=== PATIENT | male | born 1970 | race Caucasian/White ===

== ENCOUNTER 2022-11-08 10:56 | Emergency (ER) | payer OTHER ==
[2022-11-08] MEDS ORDERED: NA CHLORIDE 0.9% 1,000 ML ONE (12:33)
[2022-11-08 12:35] LABS: Absolute Lymphocytes (CBC) 1.7 K/uL (0.7-4.9); Lymphocytes % 21.8 % (15.3-44.8); MCV 94.7 fL (80-100); MPV 9.4 fL (7.6-11.3); RBC Red Blood Cell Count 4.76 M/uL (4.33-5.43)
[2022-11-08] MEDS ORDERED: MORPHINE 4 MG/ML SYR ONE (14:03)
[2022-11-08] MEDS ORDERED: ONDANSETRON 4 MG/2 ML VIAL ONE ×2 (14:03→15:23)
[2022-11-08] MEDS ORDERED: FAMOTIDINE 20 MG/2 ML VIAL IV ONE (14:03)
[2022-11-08 14:05] LABS: Albumin 3.2 g/dL (3.4-5.0); Bilirubin Total 0.2 mg/dL (0.2-1.0); Potassium 4.1 mEq/L (3.5-5.1); Protein, Total 6.7 g/dL (6.4-8.2)
[2022-11-08] MEDS ORDERED: HYDROMORPHONE HCL 1 MG/ML INJ ONE (15:23)
[2022-11-08 15:38] LABS: Specific Gravity 1.025 (1.005-1.030); Urine Bilirubin NEGATIVE (Negative); Urine Blood Negative (Negative); Urine Clarity Clear (Clear); Urine Color Colorless (Yellow); Urine Glucose NEGATIVE (Negative); Urine Protein NEGATIVE (Negative); Urine Urobilinogen Normal (Normal); Urine pH 6.5 (5.0-7.0)
--- NOTE | 2022-11-08 16:07 | RAD REPORT ---
EXAM DESCRIPTION: CT - Abdomen Pelvis W Contrast - 11/08/2022 2:33 pm CLINICAL HISTORY: ABD PAIN COMPARISON: No comparisons TECHNIQUE: Thin cut axial CT imaging of the abdomen and pelvis was performed following intravenous a dministration of 100 mL Isovue 300. Multiplanar reformats were generated and reviewed. All CT scans are performed using dose optimization technique as appropriate and may include automated exposure control or mA/KV adjustment according to patient size. FINDINGS: Right middle lobe 7 millimeter nodule is incidentally noted. No other suspicious lung find ings. . The liver, spleen, and pancreas show no suspicious findings. Gallbladder and biliary tree are also wi thout suspicious finding. Symmetric renal function is seen with no hydronephrosis or suspicious renal mass. No dilated bowel loops or bowel wall thickening. No free air, free fluid or inflammatory stranding. N o suspicious mass or bulky lymphadenopathy. The urinary bladder is without significant finding. Umbilical hernia containing fat, measuring 6.7 x 5.0 centimeter in greatest axial dimensions, and 2.5 centimeter at the neck, with fat stranding extending superficial and deep to the hernia neck. No suspicious bony findings. IMPRESSION: Fat containing umbilical hernia, with fat stranding, suggesting inflammation or strangul ation. No other acute intra-abdominal process.
--- NOTE | 2022-11-08 16:25 | ER ---
Nurse's Notes [facility] Name: Osmin Hameed Age: 52 yrs Sex: Male : 1970 Arrival Date: 11/08/2022 Time: 10:56 Bed 12 Private MD: Diagnosis: Umbilical hernia without obstruction or gangrene;Low back pain;Sciatica Presentation: 11/08 11:48 Chief complaint: Patient states: he has an abdominal hernia that is causing him pain as ap3 well as his lower back. patient reports he has been moving recently so he has been lifting a lot of heavy boxes. Coronavirus screen: At this time, the client does not indicate any symptoms associated with coronavirus-19. Ebola Screen: No symptoms or risks identified at this time. Initial Sepsis Screen: Does the patient meet any 2 criteria? No. Patient's initial sepsis screen is negative. Does the patient have a suspected source of infection? No. Patient's initial sepsis screen is negative. Risk Assessment: Do you want to hurt yourself or someone else? Patient reports no desire to harm self or others. Onset of symptoms was November 07, 2022. 11:48 Method Of Arrival: Wheelchair ap3 11:48 Acuity: DERIC 3 ap3 Triage Assessment: 11:50 General: Appears uncomfortable, Behavior is cooperative, appropriate for age. Pain: ap3 Complains of pain in low back area and abdomen. Neuro: Level of Consciousness is awake, alert, obeys commands, Oriented to person, place, time, situation. Cardiovascular: Patient's skin is warm and dry. Respiratory: Airway is patent Respiratory effort is even, unlabored, Respiratory pattern is regular, symmetrical. GI: Reports lower abdominal pain, upper abdominal pain, due to existing hernia he's had for a reported 5 years. Musculoskeletal: Historical: - Allergies: 11:49 No Known Allergies; ap3 - Home Meds: 11:49 None [Active]; ap3 - PMHx: 11:49 None; ap3 - Immunization history:: Client reports having NOT received the Covid vaccine. - Social history:: Smoking status: Patient reports the use of cigarette tobacco products, smokes one pack cigarettes per day. Screenin:51 Abuse screen: Denies threats or abuse. Nutritional screening: No deficits noted. ap3 Tuberculosis screening: No symptoms or risk factors identified. 14:09 [facility] ED Fall Risk Assessment (Adult) History of falling in the last 3 months, mb9 including since admission No falls in past 3 months (0 pts) Confusion or Disorientation No (0 pts) Intoxicated or Sedated No (0 pts) Impaired Gait No (0 pts) Mobility Assist Device Used No (0 pt) Altered Elimination No (0 pt) Score/Fall Risk Level 0 - 2 = Low Risk Oriented to surroundings, Maintained a safe environment, Educated pt \T\ family on fall prevention, incl call for assistance when getting out of bed. Assessment: 14:08 General: Appears uncomfortable. Pain: Complains of pain in back Pain radiates to mb9 abdomen Pain currently is 8 out of 10 on a pain scale. Quality of pain is described as throbbing. Neuro: Munson Agitation-Sedation Scale (RASS): 0 - Alert and Calm Level of Consciousness is awake, alert, obeys commands, Oriented to person, place, time, situation, Appropriate for age. Respiratory: Airway is patent Respiratory effort is even, unlabored, Respiratory pattern is regular, symmetrical. GI: hernia noted to abdomen Reports lower abdominal pain, upper abdominal pain. Derm: Skin is normal. Musculoskeletal: Range of motion: intact in all extremities. Vital Signs: 11:48 BP 125 / 78; Pulse 78; Resp 19; Temp 98.3; Pulse Ox 97% ; Weight 124.74 kg; Pain 7/10; ap3 14:07 BP 132 / 88; Pulse 76; Resp 18; Pulse Ox 97% on R/A; mb9 15:22 BP 140 / 87; Pulse 71; Resp 18; Pulse Ox 100% on R/A; mb9 16:52 BP 128 / 88; Pulse 74; Resp 16; Pulse Ox 98% on R/A; mb9 11:48 Pain Scale: Adult ap3 ED Course: 10:57 Patient arrived in ED. mr 11:28 Sarabjit Salamanca MD is Attending Physician. enid 11:49 Triage completed. ap3 11:51 Arm band placed on right wrist. ap3 11:51 Patient has correct armband on for positive identification. Adult w/ patient. ap3 12:30 CBC with Diff Sent. mb9 12:30 CMP Sent. mb9 12:30 Lipase Sent. mb9 12:30 Inserted saline lock: 20 gauge in right antecubital area, using aseptic technique. mb9 13:54 Melva Mas, ELISEO is Primary Nurse. mb9 14:09 No provider procedures requiring assistance completed. mb9 14:35 CT Abd/Pelvis - IV Contrast Only In Process Unspecified. EDIL 16:24 Mainor Madera MD is Referral Physician. [facility] 16:24 Floyd Eaton MD is Referral Physician. [facility] 17:14 IV discontinued, intact, bleeding controlled, No redness/swelling at site. Pressure mb9 dressing applied. Administered Medications: 12:30 Drug: NS 0.9% IV 1000 ml Route: IV; Rate: 1 bolus; Site: right antecubital; mb9 13:36 Follow up: Response: No adverse reaction; IV Status: Completed infusion mb9 13:54 Drug: Famotidine IVP 20 mg Route: IVP; Site: right antecubital; mb9 16:52 Follow up: Response: No adverse reaction mb9 13:54 Drug: Ondansetron IVP 4 mg Route: IVP; Site: right antecubital; mb9 16:52 Follow up: Response: No adverse reaction mb9 13:58 Drug: morphine IVP or IV 4 mg Route: IVP; Infused Over: 4 mins; Site: right antecubital;mb9 16:52 Follow up: Response: No adverse reaction mb9 15:15 Drug: Ondansetron IVP 4 mg Route: IVP; Site: right antecubital; mb9 16:51 Follow up: Response: No adverse reaction mb9 15:23 Drug: HYDROmorphone IVP 1 mg Route: IVP; Site: right antecubital; mb9 16:51 Follow up: Response: No adverse reaction mb9 16:35 Drug: Diazepam IVP 10 mg Route: IVP; Site: right antecubital; mb9 Medication: 14:09 VIS not applicable for this client. mb9 Outcome: 16:25 Discharge ordered by . enid 17:13 Discharged to home via wheelchair. mb9 17:13 Condition: stable 17:13 Discharge instructions given to patient, Instructed on discharge instructions, follow up and referral plans. Demonstrated understanding of instructions, follow-up care, medications, Prescriptions given X 3. 17:14 Patient left the ED. mb9 Signatures: Dispatcher [employer] [facility] Cheikh, Sarabjit, Melva Ley MD, cha, Amanda, RN RN ap3 Tg, Melva Johnson, RN RN mb9
--- NOTE | 2022-11-08 16:25 | EDPHYS ---
Physician Documentation [facility] Name: Osmin Hameed Age: 52 yrs Sex: Male : 1970 Arrival Date: 11/08/2022 Time: 10:56 Bed 12 Private MD: TASHI Physician Sarabjit Salamanca HPI: 11/08 16:16 This 52 yrs old Male presents to ER via Wheelchair with complaints of Back enid Pain, Hernia. 16:16 The patient presents with pain that is chronic, with no known mechanism of injury. The enid symptoms are located in the low back, lumbar area. Onset: The symptoms/episode began/occurred yesterday. The pain does not radiate. Associated signs and symptoms: Pertinent positives: abdominal pain. The problem was sustained when lifting boxes, heavy object. Modifying factors: The patient symptoms are alleviated by remaining still, the patient symptoms are aggravated by movement. Severity of symptoms: At their worst the symptoms were mild, in the emergency department the symptoms are unchanged. The patient has experienced similar episodes in the past, multiple times. Historical: - Allergies: 11:49 No Known Allergies; ap3 - Home Meds: 11:49 None [Active]; ap3 - PMHx: 11:49 None; ap3 - Immunization history:: Client reports having NOT received the Covid vaccine. - Social history:: Smoking status: Patient reports the use of cigarette tobacco products, smokes one pack cigarettes per day. ROS: 16:21 Constitutional: Negative for fever, chills, and weight loss, Eyes: Negative for injury, enid pain, redness, and discharge, ENT: Negative for injury, pain, and discharge, Neck: Negative for injury, pain, and swelling, Cardiovascular: Negative for chest pain, palpitations, and edema, Respiratory: Negative for shortness of breath, cough, wheezing, and pleuritic chest pain, : Negative for injury, bleeding, discharge, and swelling, MS/Extremity: Negative for injury and deformity, Skin: Negative for injury, rash, and discoloration, Neuro: Negative for headache, weakness, numbness, tingling, and seizure, Psych: Negative for depression, anxiety, suicide ideation, homicidal ideation, and hallucinations, Allergy/Immunology: Negative for hives, rash, and allergies, Endocrine: Negative for neck swelling, polydipsia, polyuria, polyphagia, and marked weight changes, Hematologic/Lymphatic: Negative for swollen nodes, abnormal bleeding, and unusual bruising. 16:21 Respiratory: Positive for cough. 16:21 Abdomen/GI: Positive for abdominal pain, of the umbilical area, HERNIA NOT PAINFUL OR TENDER , REDUCES WITHOUT PROBLEM , NO N/V. 16:21 Back: Positive for decreased range of motion, pain at rest. Exam: 16:21 Constitutional: This is a well developed, well nourished patient who is awake, alert, enid and in no acute distress. Head/Face: Normocephalic, atraumatic. Eyes: Pupils equal round and reactive to light, extra-ocular motions intact. Lids and lashes normal. Conjunctiva and sclera are non-icteric and not injected. Cornea within normal limits. Periorbital areas with no swelling, redness, or edema. ENT: Nares patent. No nasal discharge, no septal abnormalities noted. Tympanic membranes are normal and external auditory canals are clear. Oropharynx with no redness, swelling, or masses, exudates, or evidence of obstruction, uvula midline. Mucous membranes moist. Neck: Trachea midline, no thyromegaly or masses palpated, and no cervical lymphadenopathy. Supple, full range of motion without nuchal rigidity, or vertebral point tenderness. No Meningismus. Chest/axilla: Normal chest wall appearance and motion. Nontender with no deformity. No lesions are appreciated. Cardiovascular: Regular rate and rhythm with a normal S1 and S2. No gallops, murmurs, or rubs. Normal PMI, no JVD. No pulse deficits. Respiratory: Lungs have equal breath sounds bilaterally, clear to auscultation and percussion. No rales, rhonchi or wheezes noted. No increased work of breathing, no retractions or nasal flaring. Back: No spinal tenderness. No costovertebral tenderness. Full range of motion. Male : Normal genitalia with no discharge or lesions. Skin: Warm, dry with normal turgor. Normal color with no rashes, no lesions, and no evidence of cellulitis. MS/ Extremity: Pulses equal, no cyanosis. Neurovascular intact. Full, normal range of motion. Neuro: Awake and alert, GCS 15, oriented to person, place, time, and situation. Cranial nerves II-XII grossly intact. Motor strength 5/5 in all extremities. Sensory grossly intact. Cerebellar exam normal. Normal gait. Psych: Awake, alert, with orientation to person, place and time. Behavior, mood, and affect are within normal limits. 16:21 Abdomen/GI: Inspection: distension, that is mild, Bowel sounds: normal, Palpation: abdomen is soft and non-tender, Liver: no appreciated palpable abnormalities, Hernia: noted in the umbilical area, incarceration, is not appreciated, tenderness, is not appreciated. 16:21 Back: pain, that is moderate, ROM is painful, with rotation to the right, with rotation to the left, with flexion, with extension, normal spinal alignment noted, CVA tenderness, is absent, muscle spasm, is appreciated in the left low back, left mid back, right mid back and right low back. Vital Signs: 11:48 BP 125 / 78; Pulse 78; Resp 19; Temp 98.3; Pulse Ox 97% ; Weight 124.74 kg; Pain 7/10; ap3 14:07 BP 132 / 88; Pulse 76; Resp 18; Pulse Ox 97% on R/A; mb9 15:22 BP 140 / 87; Pulse 71; Resp 18; Pulse Ox 100% on R/A; mb9 16:52 BP 128 / 88; Pulse 74; Resp 16; Pulse Ox 98% on R/A; mb9 11:48 Pain Scale: Adult ap3 MDM: 11:28 Patient medically screened. [facility] 11/08 11:54 Order name: CBC with Diff; Complete Time: 14:08 [facility] 11/08 11:54 Order name: CMP; Complete Time: 14:08 [facility] 11/08 11:54 Order name: Lipase; Complete Time: 14:08 [facility] 11/08 11:54 Order name: Urinalysis w/ reflexes; Complete Time: 16:01 [facility] 11/08 11:54 Order name: CT Abd/Pelvis - IV Contrast Only; Complete Time: 16:15 [facility] 11/08 11:54 Order name: IV Saline Lock; Complete Time: 12:30 [facility] 11/08 11:54 Order name: Labs collected and sent; Complete Time: 12:30 [facility] 11/08 12:41 Order name: Labs - recollect needed: recollect green top; Complete Time: 13:36 bd Administered Medications: 12:30 Drug: NS 0.9% IV 1000 ml Route: IV; Rate: 1 bolus; Site: right antecubital; mb9 13:36 Follow up: Response: No adverse reaction; IV Status: Completed infusion mb9 13:54 Drug: Famotidine IVP 20 mg Route: IVP; Site: right antecubital; mb9 16:52 Follow up: Response: No adverse reaction mb9 13:54 Drug: Ondansetron IVP 4 mg Route: IVP; Site: right antecubital; mb9 16:52 Follow up: Response: No adverse reaction mb9 13:58 Drug: morphine IVP or IV 4 mg Route: IVP; Infused Over: 4 mins; Site: right antecubital;mb9 16:52 Follow up: Response: No adverse reaction mb9 15:15 Drug: Ondansetron IVP 4 mg Route: IVP; Site: right antecubital; mb9 16:51 Follow up: Response: No adverse reaction mb9 15:23 Drug: HYDROmorphone IVP 1 mg Route: IVP; Site: right antecubital; mb9 16:51 Follow up: Response: No adverse reaction mb9 16:35 Drug: Diazepam IVP 10 mg Route: IVP; Site: right antecubital; mb9 Disposition Summary: 11/08/22 16:25 Discharge Ordered Location: Home enid Problem: new enid Symptoms: have improved enid Condition: Stable enid Diagnosis - Umbilical hernia without obstruction or gangrene enid - Low back pain enid - Sciatica enid Followup: enid - With: Private Physician - When: 2 - 3 days - Reason: Recheck today's complaints, Continuance of care, Re-evaluation by your physician Followup: enid - With: Mainor Madera MD - When: 2 - 3 days - Reason: Recheck today's complaints, Re-evaluation by your physician Followup: enid - With: Floyd Eaton MD - When: 2 - 3 days - Reason: Recheck today's complaints, Re-evaluation by your physician Discharge Instructions: - Discharge Summary Sheet enid - Acute Back Pain, Adult enid - Chronic Back Pain enid - Hernia, Adult enid - Musculoskeletal Pain enid - Chronic Back Pain, [id number] enid - Hernia, Adult, [id number] enid - Umbilical Hernia, Adult enid Forms: - Medication Reconciliation Form enid - Thank You Letter enid - Antibiotic Education enid - Prescription Opioid Use enid Prescriptions: - Diclofenac Sodium 75 mg Oral tablet,delayed release (DR/EC) - take 1 tablet by ORAL route 2 times per day; 14 tablet; Refills: 0, Product enid Selection Permitted - Medrol (Janusz) 4 mg Oral Tablets, Dose Pack - take 1 tablet by ORAL route as directed - follow package instructions; 1 enid packet; Refills: 0, Product Selection Permitted - Cyclobenzaprine 5 mg Oral Tablet - take 1 tablet by ORAL route 3 times per day As needed; 15 tablet; Refills: 0, enid Product Selection Permitted Signatures: Dispatcher [employer] Dolores Murillo Corey, MD MD cha Prokisch, Amanda RN RN ap3 Melva Mas RN RN mb9 Corrections: (The following items were deleted from the chart) 13:00 11:56 Test, Urine+[id number].BRZ ordered. [facility]
[2022-11-08] MEDS ORDERED: DIAZEPAM 10 MG/2 ML INJ SYRINGE ONE (16:53)
[2022-11-08 17:33] VITALS: TEMP 98.3
[2022-11-08 17:37] VITALS: BP 128/88; O2SAT 98
== END 2022-11-08 17:14 | disposition home or self-care (01) ==
LOC: ER 10:56
DX: K42.9 Umbilical hernia without obstruction or gangrene (principal); M54.30 Sciatica, unspecified side; M54.50 Low back pain, unspecified; F17.210 Nicotine dependence, cigarettes, uncomplicated
CPT/HCPCS: 96361; 85025; 36415; 81003; 83690; 80053; 74177; 96375; 96374; 99284; Q9967; J3360; J1170; J2405 ×2; J7030

== ENCOUNTER 2022-11-10 06:35 | Observation (INO) | payer OTHER ==
[2022-11-10] MEDS ORDERED: ONDANSETRON 4 MG/2 ML VIAL ONE ×2 (06:55→09:21)
[2022-11-10] MEDS ORDERED: HYDROMORPHONE HCL 1 MG/ML INJ ONE (06:55)
[2022-11-10 07:02] LABS: Absolute Lymphocytes (CBC) 2.3 K/uL (0.7-4.9); Hematocrit 45.8 % (39.6-49.0); Lymphocytes % 18.1 % (15.3-44.8); MPV 9.4 fL (7.6-11.3); RBC Red Blood Cell Count 4.88 M/uL (4.33-5.43)
[2022-11-10] MEDS ORDERED: NA CHLORIDE 0.9% 1,000 ML ONE (07:06)
[2022-11-10 07:21] LABS: Albumin 3.9 g/dL (3.4-5.0); Bilirubin Total 0.4 mg/dL (0.2-1.0); Potassium 3.8 mEq/L (3.5-5.1)
--- NOTE | 2022-11-10 07:41 | RAD REPORT ---
EXAM DESCRIPTION: CTAbdomen Pelvis W Contrast - 11/10/2022 7:10 am CLINICAL HISTORY: ABD PAIN COMPARISON: Abdomen Pelvis W Contrast dated 11/08/2022 TECHNIQUE: CT of the abdomen and pelvis was performed. All CT scans are performed using dose optimization technique as appropriate and may include automated exposure control or mA/KV adjustment according to patient size. FINDINGS: Lower chest: No acute abnormality. Liver: Mild hepatic steatosis Biliary: No biliary ductal dilatation. Stomach: No significant focal abnormality. Duodenum: No significant focal abnormality. Pancreas: No significant abnormality. Spleen: No significant abnormality. Adrenal: No suspicious lesions. Kidney/ureter: No hydronephrosis. No renal calculi. Retroperitoneum: No retroperitoneal adenopathy. Vascular: No aneurysm. Bowel: No bowel obstruction. Normal appendix.. Peritoneum: No ascites or free air. Fat containing inguinal hernias, left greater than right. Moderat e sized narrow neck fat containing umbilical hernia which is slightly decreased in size but there is still significant stranding both within the hernia and in the subjacent omentum. Bladder: Grossly unremarkable. Reproductive: No adnexal masses. Bones: No acute fracture. Moderate disc height loss at L5-S1. Other: n/a IMPRESSION: Near neck fat containing umbilical hernia with stranding both within the hernia and subj acent omentum concerning for incarceration/strangulation. A similar finding was present on the CT fro m 11/08/2022. Surgical consultation is recommended.
--- NOTE | 2022-11-10 08:31 | EDPHYS ---
Physician Documentation [facility] Name: Osmin Hameed Age: 52 yrs Sex: Male : 1970 Arrival Date: 11/10/2022 Time: 06:35 Bed 5 Private MD: ED Physician Zoltan Springer HPI: 11/10 06:52 This 52 yrs old back pain and umbilical hernia pain , cant reduce like yesterday Male enid presents to ER via Wheelchair with complaints of abd and back pain. 06:52 The patient presents with pain that is acute, that is chronic, with no known mechanism enid of injury. The symptoms are located in the low back. Historical: - Allergies: 06:45 No Known Allergies; jj7 - PMHx: 06:45 None; jj7 - PSHx: 06:45 None; jj7 - Social history:: Smoking status: Patient reports the use of cigarette tobacco products, smokes one pack cigarettes per day. Patient uses alcohol, only on a social basis. Patient/guardian denies using street drugs. ROS: 06:53 Constitutional: Negative for fever, chills, and weight loss, Eyes: Negative for injury, enid pain, redness, and discharge, ENT: Negative for injury, pain, and discharge, Neck: Negative for injury, pain, and swelling, Cardiovascular: Negative for chest pain, palpitations, and edema, Respiratory: Negative for shortness of breath, cough, wheezing, and pleuritic chest pain, : Negative for injury, bleeding, discharge, and swelling, MS/Extremity: Negative for injury and deformity, Skin: Negative for injury, rash, and discoloration, Neuro: Negative for headache, weakness, numbness, tingling, and seizure. 06:53 Abdomen/GI: Positive for abdominal pain, of the umbilical area. 06:53 Back: Positive for decreased range of motion, pain at rest, pain with movement, of the lumbar area. Exam: 06:53 Constitutional: This is a well developed, well nourished patient who is awake, alert, enid and in no acute distress. Head/Face: Normocephalic, atraumatic. Eyes: Pupils equal round and reactive to light, extra-ocular motions intact. Lids and lashes normal. Conjunctiva and sclera are non-icteric and not injected. Cornea within normal limits. Periorbital areas with no swelling, redness, or edema. ENT: Nares patent. No nasal discharge, no septal abnormalities noted. Tympanic membranes are normal and external auditory canals are clear. Oropharynx with no redness, swelling, or masses, exudates, or evidence of obstruction, uvula midline. Mucous membranes moist. Neck: Trachea midline, no thyromegaly or masses palpated, and no cervical lymphadenopathy. Supple, full range of motion without nuchal rigidity, or vertebral point tenderness. No Meningismus. Chest/axilla: Normal chest wall appearance and motion. Nontender with no deformity. No lesions are appreciated. Cardiovascular: Regular rate and rhythm with a normal S1 and S2. No gallops, murmurs, or rubs. Normal PMI, no JVD. No pulse deficits. Respiratory: Lungs have equal breath sounds bilaterally, clear to auscultation and percussion. No rales, rhonchi or wheezes noted. No increased work of breathing, no retractions or nasal flaring. Male : Normal genitalia with no discharge or lesions. Skin: Warm, dry with normal turgor. Normal color with no rashes, no lesions, and no evidence of cellulitis. MS/ Extremity: Pulses equal, no cyanosis. Neurovascular intact. Full, normal range of motion. Neuro: Awake and alert, GCS 15, oriented to person, place, time, and situation. Cranial nerves II-XII grossly intact. Motor strength 5/5 in all extremities. Sensory grossly intact. Cerebellar exam normal. Normal gait. Psych: Awake, alert, with orientation to person, place and time. Behavior, mood, and affect are within normal limits. 06:53 Abdomen/GI: Inspection: distension, that is mild, Bowel sounds: normal, Palpation: mild abdominal tenderness, in the left upper quadrant and left lower quadrant, Liver: no appreciated palpable abnormalities, Hernia: noted in the umbilical area, incarceration, that is mild, tenderness, that is mild, bowel sounds are appreciated on auscultation. Vital Signs: 06:36 BP 156 / 99; Pulse 97; Resp 21; Temp 98.1; Pulse Ox 96% ; jj7 MDM: 06:39 Patient medically screened. enid 06:56 Differential diagnosis: Cholelithiasis Hydronephrosis Obesity Osteoporosis ruptured enid disc, Scoliosis bowel obstruction, diverticulitis, gastritis, non-specific abd pain, pancreatitis, Peptic Ulcer Disease, Perf. Duodenal Ulcer, urinary tract infection. Data reviewed: vital signs, nurses notes, lab test result(s), radiologic studies, CT scan. Consideration of Admission/Observation Escalation of care including admission/observation considered. I considered the following discharge prescriptions or medication management in the emergency department Medications were administered in the Emergency Department. See MAR. Test considered but Not performed: Ultrasound no abd usg. Care significantly affected by the following chronic conditions: umbilical hernia 5 years. 07:07 Transition of care: Care assumed from Sarabjit Salamanca MD. ms3 08:30 ED course: Discussed case with Dr Claire. He wants patient admitted to hospitalist, NPO, ms3 abx, pain control. He will post for OR.. 11/10 07:02 Order name: Comprehensive Metabolic Panel; Complete Time: 08:11 [facility] 11/10 07:02 Order name: Lipase; Complete Time: 08:11 [facility] 11/10 07:02 Order name: CBC with Automated Diff; Complete Time: 08:11 [facility] 11/10 08:31 Order name: Blood Culture Adult (2) [facility] 11/10 08:31 Order name: Lactate w/ 2H reflex if indic. ms3 11/10 08:31 Order name: Protime (+inr) il3 11/10 08:31 Order name: Ptt, Activated [facility] 11/10 09:56 Order name: Hemoglobin A1c [facility] 11/10 09:56 Order name: Lipid Profile [facility] 11/10 09:56 Order name: Lipid Profile [facility] 11/10 06:46 Order name: CT Abd/Pelvis - IV Contrast Only; Complete Time: 08:11 kd3 11/10 08:31 Order name: EKG; Complete Time: 08:32 il3 11/10 06:46 Order name: IV Saline Lock; Complete Time: 06:52 kd3 11/10 06:46 Order name: Labs collected and sent; Complete Time: 06:52 3 11/10 08:31 Order name: Accucheck il11/10 08:31 Order name: Cardiac monitoring il3 11/10 08:31 Order name: EKG - Nurse/Tech ms 11/10 08:31 Order name: IV Saline Lock - Large Bore ms3 11/10 08:31 Order name: O2 Per Protocol il3 11/10 08:31 Order name: O2 Sat Monitoring ms3 11/10 08:31 Order name: Vital Signs ms3 Administered Medications: 06:51 Drug: Ondansetron IVP 4 mg Route: IVP; Site: right antecubital; kl 06:52 Drug: HYDROmorphone IVP 1 mg Route: IVP; Site: right antecubital; kl 07:04 Drug: NS 0.9% IV 1000 ml Route: IV; Rate: 1 bolus; Site: right antecubital; jj7 08:05 Follow up: IV Status: Completed infusion iw 10:05 Not Given (pt taken to OR): Piperacillin-Tazobactam IVPB 3.375 grams IVPB once over 60 iw mins; (mix in NS 100 mL) Disposition Summary: 11/10/22 08:30 Hospitalization Ordered Hospitalization Status: Inpatient Admission ms3 Location: Telemetry/[facility]Sur (Inpatient) ms3 Condition: Stable ms3 Problem: new ms3 Symptoms: are unchanged ms3 Bed/Room Type: Standard ms3 Room Assignment: ms3 Provider: Marck Birch(11/10/22 09:23) ms3 Diagnosis - Strangulated Umbilical Hernia ms3 - Abdominal pain, unspecified ms3 - Low back pain ms3 Forms: - Medication Reconciliation Form ms3 - SBAR form ms3 Signatures: Dispatcher [employer] EDAmparo Bell RN Sarabjit Parsons MD MD cha Sims, Marcus, DO DO ms3 Luna Santos RN ELISEO landers3 Betito Galvez RN RN jSofía Ogden RN iw Corrections: (The following items were deleted from the chart) 07: 07:01 Abdomen ordered. EDMS EDMS 09: 08:30 Frederick Howard ms3 ms3 09: 07:02 CBC+H.LAB.BRZ ordered. EDMS EDMS 09: 07:02 COMPREHENSIVE METABOLIC PANEL+C.LAB.BRZ ordered. EDMS EDMS 09: 07:02 LIPASE+C.LAB.BRZ ordered. EDMS EDMS
--- NOTE | 2022-11-10 08:31 | ER ---
Nurse's Notes [facility] Name: Osmin Hameed Age: 52 yrs Sex: Male : 1970 Arrival Date: 11/10/2022 Time: 06:35 Bed 5 Private MD: Diagnosis: Strangulated Umbilical Hernia;Abdominal pain, unspecified;Low back pain Presentation: 11/10 06:36 Chief complaint: Patient states: HERNIA PAIN X2 DAYS. HAS HAVE THIS ABD HERNIA FOR 5 jj7 YRS. STATES HE WAS IN THIS ER YESTERDAY FOR THE SAME THING. WE INFORMED HE NEEDED TO F/U FOR SURGERY. CHRONIC BACK PAIN. Coronavirus screen: At this time, the client does not indicate any symptoms associated with coronavirus-19. Ebola Screen: No symptoms or risks identified at this time. Initial Sepsis Screen: Does the patient meet any 2 criteria? No. Patient's initial sepsis screen is negative. Does the patient have a suspected source of infection? No. Patient's initial sepsis screen is negative. Risk Assessment: Do you want to hurt yourself or someone else? Patient reports no desire to harm self or others. Onset of symptoms was November 08, 2022. 06:36 Method Of Arrival: Wheelchair [facility] 06:36 Acuity: DERIC 3 jj7 Triage Assessment: 06:45 General: Appears distressed, uncomfortable, Behavior is cooperative, appropriate for [facility] age. Pain: Complains of pain in abdomen Pain currently is 10 out of 10 on a pain scale. GI: PROTRUDING HERNIA. Historical: - Allergies: 06:45 No Known Allergies; jj7 - PMHx: 06:45 None; jj7 - PSHx: 06:45 None; jj7 - Social history:: Smoking status: Patient reports the use of cigarette tobacco products, smokes one pack cigarettes per day. Patient uses alcohol, only on a social basis. Patient/guardian denies using street drugs. Screenin:47 [facility] ED Fall Risk Assessment (Adult) History of falling in the last 3 months, j7 including since admission No falls in past 3 months (0 pts) Confusion or Disorientation No (0 pts) Intoxicated or Sedated No (0 pts) Impaired Gait No (0 pts) Mobility Assist Device Used No (0 pt) Altered Elimination No (0 pt) Score/Fall Risk Level 0 - 2 = Low Risk Maintained a safe environment. Abuse screen: Denies threats or abuse. Nutritional screening: No deficits noted. Tuberculosis screening: No symptoms or risk factors identified. Assessment: 06:47 Reassessment: SEE TRIAGE ASSESSMENT. jj7 Vital Signs: 06:36 BP 156 / 99; Pulse 97; Resp 21; Temp 98.1; Pulse Ox 96% ; jj7 ED Course: 06:36 Patient arrived in ED. ja2 06:39 Sarabjit Salamanca MD is Attending Physician. [facility] 06:45 Triage completed. jj7 06:45 Arm band placed on right wrist. Patient placed in an exam room, on a stretcher. jj7 06:47 Bed in low position. Call light in reach. Side rails up X 1. jj7 07:07 Attending Physician role handed off by Sarabjit Salamanca MD ms3 07:07 Zoltan Springer DO is Attending Physician. ms3 07:12 CT Abd/Pelvis - IV Contrast Only In Process Unspecified. EDMS 08:30 Frederick Howard MD is Hospitalizing Provider. ms3 09:22 Marck Birch MD is Hospitalizing Provider. ms3 10:04 Sofía Chiang, ELISEO is Primary Nurse. iw 10:05 No provider procedures requiring assistance completed. Patient admitted, IV remains in iw place. Administered Medications: 06:51 Drug: Ondansetron IVP 4 mg Route: IVP; Site: right antecubital; kl 06:52 Drug: HYDROmorphone IVP 1 mg Route: IVP; Site: right antecubital; 07:04 Drug: NS 0.9% IV 1000 ml Route: IV; Rate: 1 bolus; Site: right antecubital; jj7 08:05 Follow up: IV Status: Completed infusion iw 10:05 Not Given (pt taken to OR): Piperacillin-Tazobactam IVPB 3.375 grams IVPB once over 60 iw mins; (mix in NS 100 mL) Medication: 06:47 VIS not applicable for this client. jj7 Outcome: 08:30 Decision to Hospitalize by Provider. ms3 10:05 Admitted to OR accompanied by nurse, via stretcher. iw 10:06 Patient left the ED. iw Signatures: Dispatcher [employer] Amparo Purvis, RN RN Sarabjit Stockton MD MD cha Williams, Irene, RN RN Zoltan Larkin DO DO ms3 Jeanine Louie2 Betito Galvez RN RN jj7
[2022-11-10] MEDS ORDERED: PIPER TAZO 3.375 GM in NA CHLORIDE 0.9% 100 ML IV ONE (09:15)
[2022-11-10] MEDS ORDERED: BUPIVACAINE 0.5% PF 10 ML VIAL ONE (09:18)
[2022-11-10] MEDS ORDERED: ROCURONIUM 50 MG/5 ML VIAL IV ONE (09:21)
[2022-11-10] MEDS ORDERED: KETOROLAC 30 MG/ML INJ ONE (09:21)
[2022-11-10] MEDS ORDERED: FENTANYL CITR 100 MCG/2 ML ONE ×2 (09:21→10:23)
[2022-11-10] MEDS ORDERED: MIDAZOLAM HCL 2 MG/2 ML INJ ONE (09:21)
[2022-11-10] MEDS ORDERED: propofoL 200 MG/20 ML VIAL IV ONE (09:21)
[2022-11-10] MEDS ORDERED: LIDOCAINE 2% MPF 5 ML VIAL ONE (09:22)
--- NOTE | 2022-11-10 09:23 | P.CNS ---
Date of Consult: 11/10/22 Reason for consult: Abdominal pain History of present illness: Patient is a 52-year-old gentleman with a long history of a umbilical hernia which recently became difficult to reduce associated with pain, nausea and vomiting. Patient has been to the emergency room couple of times and sent home with the reduction of the hernia. However, patient came this morning with increasing pain, dry heaves and difficulty reducing the hernia. Patient had a CAT scan done which showed incarcerated possible strangulated umbilical hernia. Patient denies any sore throat runny nose, cough, headaches, dizziness, chest pain fever chills. Patient denies diarrhea, constipation, blood per rectum, dysuria or hematuria. Review of systems: Otherwise unremarkable Past medical history: Blood pressure is elevated in the emergency room but patient does not take any medication Past surgical history: Negative Allergies: None Social history: Patient smokes tobacco has been counseled and drinks alcohol socially Family history: Noncontributory Vital signs: Stable, afebrile Physical exam: Awake, alert and oriented x3 Head and neck exam: Cranial nerves II through XII grossly within normal limits, no neck masses, no JVD, throat clear and neck supple Chest: Clear Heart: S1-S2 Abdomen: Soft, nondistended, positive bowel sounds with periumbilical tenderness. There is a 4 x 6 cm umbilical hernia which is partially reduced. It is tender. Extremity: Neurovascularly intact, nontender Neuro: Nonfocal Diagnostic data: Leukocytosis and CAT scan reviewed Assessment: Incarcerated possible strangulated umbilical hernia Plan/recommendation: Admit, n.p.o., IV fluids, IV antibiotics and to the OR for laparoscopic assisted repair of incarcerated possible strangulated umbilical hernia. Patient understands risk, benefits, alternatives and agrees to procedure. CC:
[2022-11-10] MEDS ORDERED: ACETAMINOPHEN 650MG/RECT SUPP PR PRN (09:53)
[2022-11-10] MEDS ORDERED: MORPHINE 4 MG/ML SYR IV PRN (09:53)
[2022-11-10] MEDS ORDERED: ONDANSETRON 4 MG/2 ML VIAL IV PRN (09:57)
--- NOTE | 2022-11-10 10:19 | P.HP ---
Certification for Inpatient Patient admitted to: Observation With expected LOS: <2 Midnights Patient will require the following post-hospital care: None Practitioner: I am a practitioner with admitting privileges, knowledge of patient current condition, hospital course, and medical plan of care. Services: Services provided to patient in accordance with Admission requirements found in Title 42 Section 412.3 of the Code of Federal Regulations Patient History Date of Service: 11/10/22 Reason for admission: Abdominal pain and umbilical hernia History of Present Illness: Patient is a 52-year-old male with a past medical history significant for umbilical hernia who presents with complaint of abdominal pain and back pain. Patient indicated abdominal pain is located in the periumbilical area. Patient reported that he has had umbilical hernia for the past 5 years and started experiencing worsening pain in the last 3 months. Patient rated pain as 9/10 in severity and described pain as sharp\burning\throbbing in quality. Patient reported that abdominal pain radiates to his left lower quadrant. Patient also reports low back pain onset 3 days ago as he was trying to lift up an object. 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 Patient reported associated signs and symptoms of subjective fever, poor appetite and nausea. Patient denies any other signs and symptoms. Symptoms are aggravated or relieved by nothing. Patient was seen in the hospital yesterday for similar symptoms and was discharged home. Patient decided to present to the hospital due to worsening symptoms. Allergies No Known Allergies Allergy (Unverified 11/10/22 10:14) - Past Medical/Surgical History -: Umbilical hernia -: Migraine headache -: Nicotine dependence Past Surgical History: Reviewed- Non-Contributory - Family History Family History: Reviewed- Non-Contributory - Social History Smoking Status: Current every day smoker Counseled patient to stop smoking for: less than 10 minutes Smoking therapy provided: Yes Patient receptive to therapy: Yes Alcohol use: Yes CD- Drugs: No Caffeine use: No Place of Residence: Home Review of Systems General: Other (Subjective fever, poor appetite) Eyes: Unremarkable ENT: Unremarkable Respiratory: Unremarkable Cardiovascular: Unremarkable Gastrointestinal: Nausea, Abdominal Pain Genitourinary: Unremarkable Musculoskeletal: Unremarkable Integumentary: Unremarkable Neurological: Unremarkable Lymphatics: Unremarkable Physical Examination - Vital Signs Temperature: 98.1 F Blood Pressure: 156/99 Pulse: 97 Respirations: 21 - Physical Exam General: Alert, In no apparent distress, Oriented x3, Cooperative HEENT: Atraumatic, PERRLA, Mucous membr. moist/pink, EOMI, Sclerae nonicteric Neck: Supple, 2+ carotid pulse no bruit, No LAD, Without JVD or thyroid abnormality Respiratory: Clear to auscultation bilaterally, Normal air movement Cardiovascular: No edema, Regular rate/rhythm, Normal S1 S2 Capillary refill: <2 Seconds Gastrointestinal: Normal bowel sounds, Distended, Tenderness Musculoskeletal: No clubbing, No tenderness Integumentary: No rashes, No breakdown, No significant lesion Neurological: Normal speech, Normal strength at 5/5 x4 extr, Normal tone, Normal affect Lymphatics: No axilla or inguinal lymphadenopathy - Studies Laboratory Data (last 24 hrs) 11/10/22 06:46: Sodium Cancelled, Potassium Cancelled, BUN Cancelled, Creatinine Cancelled, Glucose Cancelled, Total Bilirubin Cancelled, AST Cancelled, ALT Cancelled, Alkaline Phosphatase Cancelled, Lipase Cancelled 11/10/22 06:46: WBC Cancelled, Hgb Cancelled, Hct Cancelled, Plt Count Cancelled 11/10/22 06:45: Sodium 138, Potassium 3.8, BUN 20 H, Creatinine 1.16, Glucose 107 H, Total Bilirubin 0.4, AST 18, ALT 38, Alkaline Phosphatase 109, Lipase 27 11/10/22 06:45: WBC 12.90 H, Hgb 15.2, Hct 45.8, Plt Count 211 Assessment and Plan - Plan --Incarcerated hernia. CT abdomen indicates Near neck fat containing umbilical hernia with stranding both within the hernia and subjacent omentum concerning for incarceration/strangulation. Surgeon consulted. Plans to take patient to the OR for hernia repair. Continue prophylactic antibiotics and IV hydration. Will await further recommendation from surgeon. -- Acute pain. We will manage pain with current pain medication regimen. --Nicotine dependence. Patient counseled on tobacco cessation. Placed on nicotine patch. --ROBERTO CARLOS. Likely prerenal secondary to poor p.o. intake. Continue IV hydration. We will continue to monitor renal functions. --Back pain. Patient reported that he sustained back pain 3 days ago as he was trying to lift an object. We will manage pain with current pain medication regimen. -- Leukocytosis. Likely reactive. Continue to monitor WBC levels. --History of migraine headache. Tylenol as needed. --Elevated blood pressure without a diagnosis of hypertension. We will manage BP with labetalol as needed. --Nausea. Antiemetics on board. Continue supportive care. --DVT prophylaxis with SCDs. Discharge Plan: Home Plan to discharge in: 48 Hours - Advance Directives Does patient have a Living Will: No Does patient have a Durable POA for Healthcare: No - Code Status/Comfort Care Code Status Assessed: Yes Physician Review: Patient Assessed, Agree with Above Assessment and Plan Critical Care: No
[2022-11-10] MEDS: Ringers Lactate 1,000 ML IV ONE ×2 (10:25→10:44)
[2022-11-10] MEDS ORDERED: LABETALOL 20 MG/4ML SYRINGE IV PRN (10:45)
--- NOTE | 2022-11-10 10:54 | P.OP ---
Date of Service: 11/10/22 Preop diagnosis: Incarcerated umbilical hernia, possibly strangulated Postop diagnosis: Incarcerated and strangulated hernia Procedure performed: Laparoscopic repair of incarcerated strangulated hernia Surgeon: Bari Claire MD Croze Cutter: Gris LAUREN, XIN Stern Estimated blood loss: Minimal Specimen: Hernia sac and omental mass. Omental mass consistent with fat necrosis Findings: As above Anesthesia: General Complications: None Drains: None Fluids and blood products: Nonapplicable Disposition: Recovery room Operative note: Patient brought to the OR and placed in supine position. General anesthesia begun. Patient prepped and draped in usual sterile fashion. Marcaine 0.5% infiltrated locally. 15 blade used to make a 1 cm left upper quadrant incision. Subcutaneous tissue divided. Bleeding controlled cautery. Fascia identified and divided. #1 Vicryl stay suture placed. Peritoneal cavity entered with sharp and blunt dissection. 12 mm trocar placed into the peritoneal cavity under direct vision. Pneumoperitoneum established. And a 5 mm trocar placed under direct vision in the left lower quadrant. Laparoscopy revealed incarcerated omentum into the hernia defect which was at the umbilicus approximately 4 cm in diameter patient also had a part of his omentum that appeared to be necrotic which was intraperitoneal at this time most of the omentum was released from the hernia edges with the LigaSure. Portion of it was attached close to the bowel and this was done and when the hernia was opened. Patient had redundant skin over his hernia. Ellipse of skin incision approximately 4 x 6 cm made. Subcutaneous tissue divided and bleeding controlled cautery. Hernia sac identified excised at the fascial edges. Omentum brought into the wound. And the necrotic portion of the omentum excised with LigaSure and sent to pathology as specimen. Hernia sac sent to specimen. Subsequently no evidence of bleeding noted primary closure of the hernia defect performed. #1 Prolene suture used. Complete coverage of the hernia defect accomplished. Then Bard balloon system mesh placed into the peritoneal cavity. The mesh deployed in the standard fashion. Sorbitex used to secure the mesh to the peritoneal surface. Complete coverage of the hernia defect site accomplished with approximately 5 cm coverage on all direction. All balloon system component brought out. All trocars removed under direct vision. Stay sutures tied to each other to reapproximate the fascial defect. Subcu wound irrigated bleeding controlled cautery. Skin reattached to the umbilicus. And 3-0 chromic used to approximate subcutaneous tissue and close skin. Sterile dressing applied. Patient awakened and taken to recovery room in good general condition. CC:
[2022-11-10] MEDS ORDERED: HYDROCODONE/APAP 7.5/325 MG TAB PO PRN (11:03)
[2022-11-10] MEDS ORDERED: Mastisol Adhesive Liq ONE (11:09)
[2022-11-10] MEDS: HYDROMORPHONE HCL 1 MG/ML INJ ONE ×2 (11:35→11:43)
[2022-11-10 12:56] LABS: Magnesium 2.2 mg/dL (1.6-2.4); Phosphorus 2.6 mg/dL (2.5-4.9)
[2022-11-10 12:57] VITALS: BMI 28.5
[2022-11-10] MEDS: NA CHLORIDE 0.9% 1,000 ML IV SCH (12:58)
[2022-11-10] MEDS: HYDROMORPHONE HCL 1 MG/ML INJ IV PRN ×2 (15:38→20:54)
[2022-11-10] MEDS: PIPER TAZO 3.375 GM in NA CHLORIDE 0.9% 100 ML IV SCH (16:49)
[2022-11-10 20:34] VITALS: O2SAT 93
[2022-11-11] MEDS: HYDROMORPHONE HCL 1 MG/ML INJ IV PRN ×2 (00:45→04:27)
[2022-11-11] MEDS: PIPER TAZO 3.375 GM in NA CHLORIDE 0.9% 100 ML IV SCH (00:46)
[2022-11-11] MEDS: NA CHLORIDE 0.9% 1,000 ML IV SCH (00:46)
[2022-11-11 03:59] LABS: Absolute Lymphocytes (CBC) 1.4 K/uL (0.7-4.9); Hematocrit 39.8 % (39.6-49.0); Lymphocytes % 12.9 % (15.3-44.8); MCV 95.1 fL (80-100); MPV 10.1 fL (7.6-11.3); RBC Red Blood Cell Count 4.19 M/uL (4.33-5.43)
[2022-11-11 04:01] LABS: Protime INR 0.98
[2022-11-11 04:56] LABS: Specific Gravity 1.021 (1.005-1.030); Urine Bilirubin NEGATIVE (Negative); Urine Blood Negative (Negative); Urine Clarity Clear (Clear); Urine Color Light-Yellow (Yellow); Urine Glucose NEGATIVE (Negative); Urine Protein NEGATIVE (Negative); Urine Urobilinogen Normal (Normal)
--- NOTE | 2022-11-11 06:55 | P.PN ---
Date of Service: 11/11/22 Subjective: Feeling pretty good today pain is tolerable with medication tolerating liquids no new / worsening problems ROS: 10 point ROS as noted above, otherwise negative Physical Exam: GEN: Alert, oriented, NAD HEENT: Normal conjunctiva, sclera anicteric CV: Regular rate and rhythm, no edema Pulm: Nonlabored respirations on room air ABD: Soft, nontender, nondistended MSK: No joint tenderness Integumentary: No rashes Neuro: Normal speech, normal affect vitals reviewed Problem List: Incarcerated and strangulated hernia Back pain ROBERTO CARLOS Nicotine dependence History of migraine headache Elevated blood pressure without a diagnosis of hypertension Incarcerated and strangulated hernia CT abdomen indicates Near neck fat containing umbilical hernia with stranding both within the hernia and subjacent omentum concerning for incarceration/strangulation. Surgeon consulted. s/p Laparoscopic repair of incarcerated strangulated hernia 11/10 Continue antibiotics Continue antiemetics Pain medication as needed Leukocytosis noted, likely reactive. Continue to monitor WBC Back pain Patient reported that he sustained back pain 3 days ago as he was trying to lift an object. Pain medication as needed ROBERTO CARLOS Likely prerenal secondary to poor p.o. intake. We will continue to monitor renal function IVF Nicotine dependence - Patient counseled on tobacco cessation. Placed on nicotine patch. History of migraine headache - Tylenol as needed. Elevated blood pressure without a diagnosis of hypertension - labetalol as needed VTE: SCD Code: Full Dispo: Home 1-2 days
--- NOTE | 2022-11-11 07:50 | P.DS ---
Admission Date: 11/10/22 Discharge Date: 11/11/22 Disposition: ROUTINE DISCHARGE Discharge Condition: GOOD Reason for Admission: Abdominal pain and umbilical hernia Consultations: General Surgery - Dr. Claire Brief History of Present Illness: 52 yo M, PMH: umbilical hernia Patient presents with complaint of abdominal pain and back pain. Patient indicated abdominal pain is located in the periumbilical area. Patient reported that he has had umbilical hernia for the past 5 years and started experiencing worsening pain in the last 3 months. Patient rated pain as 9/10 in severity and described pain as sharp\burning\throbbing in quality. Patient reported that abdominal pain radiates to his left lower quadrant. Patient also reports low back pain onset 3 days ago as he was trying to lift up an object. 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 Patient reported associated signs and symptoms of subjective fever, poor appetite and nausea. Patient denies any other signs and symptoms. Symptoms are aggravated or relieved by nothing. Patient was seen in the hospital yesterday for similar symptoms and was discharged home. Patient decided to present to the hospital due to worsening symptoms. Hospital Course: Problem List: Incarcerated and strangulated hernia Back pain ROBERTO CARLOS Nicotine dependence History of migraine headache Elevated blood pressure without a diagnosis of hypertension Patient found to have incarcerated inguinal hernia and underwent surgical repair by Dr. Claire. He did well post-operatively and deemed stable for discharge home with pain medication. No fever, no evidence of infection. Discussed with Dr. Claire, no antibiotics indicated on discharge, Follow up PCP 3-[address] Claire as scheduled no heavy lifting (>10lbs), no submerging incision under water (running water ok) stool softener while taking pain medication Physical Exam: GEN: Alert, oriented, NAD HEENT: Normal conjunctiva, sclera anicteric CV: Regular rate and rhythm, no edema Pulm: Nonlabored respirations on room air ABD: Soft, nontender, nondistended MSK: No joint tenderness Integumentary: No rashes Neuro: Normal speech, normal affect Vital Signs/Physical Exam: Temp Pulse Resp BP Pulse Ox 98.7 F 82 21 H 116/68 96 11/11/22 04:00 11/11/22 04:00 11/11/22 04:27 11/11/22 04:00 11/11/22 04:27 Laboratory Data at Discharge: WBC 11.10 thou/uL (4.3-10.9) H 11/11/22 02:29 Hgb 13.3 g/dL (13.6-17.9) L D 11/11/22 02:29 Hct 39.8 % (39.6-49.0) 11/11/22 02:29 Plt Count 167 thou/uL (152-406) 11/11/22 02:29 PT 10.8 SECONDS (9.5-12.5) 11/11/22 02:29 INR 0.98 11/11/22 02:29 APTT 29.2 SECONDS (24.3-36.9) 11/10/22 14:00 Sodium 134 mEq/L (136-145) L 11/11/22 02:29 Potassium 4.0 mEq/L (3.5-5.1) 11/11/22 02:29 BUN 14 mg/dL (7-18) 11/11/22 02:29 Creatinine 0.84 mg/dL (0.70-1.30) 11/11/22 02:29 Glucose 100 mg/dL (74-106) 11/11/22 02:29 Phosphorus 2.6 mg/dL (2.5-4.9) 11/10/22 04:50 Magnesium 2.2 mg/dL (1.6-2.4) 11/10/22 04:50 Total Bilirubin Cancelled 11/10/22 06:46 AST Cancelled 11/10/22 06:46 ALT Cancelled 11/10/22 06:46 Alkaline Phosphatase Cancelled 11/10/22 06:46 Triglycerides 159 mg/dL (<150) H 11/11/22 02:29 Cholesterol 130 mg/dL (<200) 11/11/22 02:29 HDL Cholesterol 33 mg/dL (40-60) L 11/11/22 02:29 Cholesterol/HDL Ratio 3.94 11/11/22 02:29 Lipase Cancelled 11/10/22 06:46 Home Medications: NK [No Home Meds] 11/10/22 Physician Discharge Instructions: Patient found to have incarcerated inguinal hernia and underwent surgical repair by Dr. Claire. He did well post-operatively and deemed stable for discharge home with pain medication. No fever, no evidence of infection. Discussed with Dr. Claire, no antibiotics indicated on discharge, Follow up PCP 3-[address] Claire as scheduled no heavy lifting (>10lbs), no submerging incision under water (running water ok) stool softener while taking pain medication Diet: Low sodium Activity: No lifting more than 10 lbs Followup: Bari Claire MD [ACTIVE - CAN ADMIT] - 1 Week Unknown,U [Primary Care Provider] - Time spent managing pt's care (in minutes): 45
--- NOTE | 2022-11-11 08:27 | PN ---
Date of Progress Note: 11/11/2022 Subjective: Patient is awake, alert. Has minimal incisional pain. Tolerating diet, ambulating. Pain controlled with p.o. pain medication. Afebrile. Objective: Vital Signs: Stable. He is afebrile. Abdomen: Soft. Dressing is clean, dry, and intact. Assessment: Status post repair of incarcerated and strangulated umbilical hernia. Recommendations: Patient is cleared for discharge from surgery point of view. Discharge instructions given. Pain medicines called into patient's pharmacy. /MODL Voice ID: [id number] Report ID: [id number]
[2022-11-11 08:32] VITALS: BP 147/82; TEMP 97.8
[2022-11-11] MEDS ORDERED: NICOTINE 21 MG/PAT TD SCH (09:00)
== END 2022-11-11 09:08 | disposition home or self-care (01) ==
LOC: ER 06:35 → ERHOLD 09:50 → 2ND 11:20
PROVIDERS: ADMIT Hospitalist; ATTEND Hospitalist
PROC: 0WUF4JZ Supplement Abdominal Wall with Synthetic Substitute, Percutaneous Endoscopic Approach (ICD-10-PCS; principal; 2022-11-10 09:15)
DX: K42.9 Umbilical hernia without obstruction or gangrene (principal); M54.50 Low back pain, unspecified; F17.210 Nicotine dependence, cigarettes, uncomplicated; K42.0 Umbilical hernia with obstruction, without gangrene; N17.9 Acute kidney failure, unspecified; D72.829 Elevated white blood cell count, unspecified; R03.0 Elevated blood-pressure reading, without diagnosis of hypertension; R11.0 Nausea; Z71.6 Tobacco abuse counseling
CPT/HCPCS: 96361; 87040 ×2; 85025 ×2; 80048; 36415; 83735; 84100; 85610 ×2; 80061; 83605; 88302; 88304; 85730; 81003; 83036; 83690; 80053; 74177; 94010; 96375; 96374; 99285; 49594; Q9967; J2704; J2543 ×3; J2001; J2250; J3010 ×2; J1170 ×6; J2405 ×2; G0378 ×5; J7120; J7030 ×3